=== PATIENT | female | born 1950 | race Two or more races ===

== ENCOUNTER 2020-11-23 12:30 | Inpatient (IN) | payer OTHER ==
[~2020-11-23] VITALS: Ht 172.7 cm; Wt 103.4 kg
[~2020-11-23 12:30] MED LIST: CO Q-10300 MG; GLUMETZA1000 MG; SYNTHROID50 MCG
[2020-11-23] MEDS ORDERED: STEGLUJAN 15-11 EACH PO (15:13)
[2020-11-23] MEDS ORDERED: LEVOTHYROXINE25 MCG PO (15:13)
[2020-11-23] MEDS ORDERED: ROSUVASTATIN CA10 MG PO (15:13)
[2020-11-23] MEDS ORDERED: VITAMIN E400 UNI5 PO (15:14)
[2020-11-23] MEDS ORDERED: BIOTIN PO (15:14)
[2020-11-23] MEDS ORDERED: SUPER B-50 COM1 EACH PO (15:15)
[2020-11-30] MEDS ORDERED: BIOTIN1 M1 (08:55)
[2020-11-30] MEDS ORDERED: PANTOPRAZOLE SO40 MG (08:55)
[2020-12-01] MEDS ORDERED: DUI500 PO (10:25)
[2020-12-01] MEDS ORDERED: PERCOCET 5-3251 EACH PO (10:25)
[2020-12-01] MEDS ORDERED: ELIQUIS2.5 MG PO (10:25)
== END 2020-12-01 17:40 | DRG 470 ==
LOC: SURH 11-29 05:40 → O/R 11-29 05:40 → SURH 11-29 12:30 → SURG 11-29 13:08 → SURH 11-29 16:36
PROVIDERS: ADMIT Orthopaedic Surgery; ATTEND Orthopaedic Surgery
PROC: 0SRD0J9 Replacement of Left Knee Joint with Synthetic Substitute, Cemented, Open Approach (ICD-10-PCS; principal; 2020-11-29 13:00)
DX: M17.12 Unilateral primary osteoarthritis, left knee (principal); D62 Acute posthemorrhagic anemia; E11.9 Type 2 diabetes mellitus without complications; Z20.822 Contact with and (suspected) exposure to COVID-19

== ENCOUNTER 2025-05-14 06:09 | Emergency (ER) | payer OTHER ==
[~2025-05-14] VITALS: Ht 172.7 cm; Wt 108.4 kg
[~2025-05-14 06:09] MED LIST changes: +ANALPRAM HC 2.530 GM RECTAL; +BIOTIN PO; +BIOTIN1 M1; +CIPRO500 MG PO; +DUI500 PO; +ELIQUIS2.5 MG PO; +EZALLOR SPRINKLE5 MG; +JARDIANCE10 MG; +LEVOTHYROXINE25 MCG PO; +METRONIDAZOLE500 MG PO; +MOUNJARO2.5 MG/0.5 SQ; +PANTOPRAZOLE SO40 MG; +PEPCID AC20 MG PO; +PERCOCET 5-3251 EACH PO; +PROBIOTIC1 EAC2 PO; +ROSUVASTATIN CA10 MG PO; +STEGLUJAN 15-11 EACH PO; +SUPER B-50 COM1 EACH PO; +VITAMIN E400 UNI5 PO
[2025-05-14] MEDS ORDERED: PIPERACILLIN/TAZOBACTAM SODIUM 3.375 GM VIAL IV STA (08:04)
[2025-05-14] MEDS ORDERED: ONDANSETRON HCL 2 MG/ML VIAL IV STA (08:04)
[2025-05-14] MEDS ORDERED: FAMOTIDINE/PF 20 MG/2 ML VIAL IV STA (08:05)
[2025-05-14] MEDS ORDERED: 0.9 % SODIUM CHLORIDE 1,000 ML IV STA (08:05)
[2025-05-14] MEDS ORDERED: KETOROLAC TROMETHAMINE 30 MG VIAL IV STA (08:08)
[2025-05-14] MEDS ORDERED: KETOROLAC TROMETHAMINE 30 MG VIAL ONE (08:44)
[2025-05-14] MEDS ORDERED: PIPERACILLIN/TAZOBACTAM SODIUM 3.375 GM VIAL IV ONE (08:45)
[2025-05-14] MEDS ORDERED: ONDANSETRON HCL 2 MG/ML VIAL ONE (08:45)
[2025-05-14] MEDS ORDERED: FAMOTIDINE/PF 20 MG/2 ML VIAL ONE (08:45)
[2025-05-14 10:05] LABS: BASO % 0.2 % (0.1-1.2); EOS # 0.11 (0.04-0.54); EOS % 1.7 % (0.7-7.0); LYMPH # 1.19 (1.18-3.74); LYMPH % 18.2 % (19.3-53.1); MEAN PLATELET VOLUME 11.00 fl (9.4-12.4); MONO # 0.56 (0.24-0.82); MONO % 8.6 % (4.7-12.5); NEUT # 4.64 (1.56-6.13); NEUT % 71.0 % (34.0-71.1); RED CELL DISTRIBUTION WIDTH 12.9 % (11.6-14.4)
[2025-05-14 10:27] LABS: ALT/SGPT 98.0 U/L (12-78); AST/SGOT 71.0 U/L (15-37); BILIRUBIN TOTAL 1.1 mg/dL (0.3-1.2); BUN CREA RATIO 23.0 (7.0-25.0); CREATININE SERUM 0.97 mg/dL (0.55-1.02); GFR 56.29; GLOBULINA 3.7 G/DL (2.4-3.5); GLUCOSE FASTING 176.0 mg/dL (65-100); OSMOLALITY SERUM 293.0 MOSM/KG (275-295)
[2025-05-14] MEDS ORDERED: ABATINEX680 MG PO (13:02)
[2025-05-14] MEDS ORDERED: PEPCID AC20 MG PO (13:02)
== END 2025-05-14 13:55 | disposition home or self-care (01) ==
LOC: ER
PROVIDERS: General Practice
DX: K52.9 Noninfective gastroenteritis and colitis, unspecified (principal); A08.8 Other specified intestinal infections; R10.9 Unspecified abdominal pain; E11.9 Type 2 diabetes mellitus without complications; Z91.0110 Allergy to milk products, unspecified
CPT/HCPCS: 36415; 74177; Q9965